=== PATIENT | male | born 1955 | race Caucasian/White ===

== ENCOUNTER → 2016-11-28 | Day surgery (SDC) | payer BC ==
[~2016-11-28] MED LIST: ALTACE PO; ASPIRINEC PO; BUPROPION XL300 MG PO; COREG PO; IBUPROFEN800 MG PO; LORTAB 7.5-5001 TAB PO; OMEPRAZOLE20 M2 PO; OMEPRAZOLE40 M1 PO; PHENERGAN PO; PREVACID PO; WELLBUTRIN SR PO; ZOLOFT PO
--- NOTE | ~2016-11-28 | OR ---
Unit #: [id number] #: [id number] Patient: SELENA NAVA [id number] [address] [address] [id number] MR#: [id number] NAME: SELENA NAVA. ROOM: Date of Procedure: 11/28/2016 Admission Date: 11/28/2016 Surgeon: Miles Owens M.D. : 1955 Attending Physician: Miles Owens M.D. Primary Care Physician: Paige Ruvalcaba A.P.R.N. OPERATIVE REPORT PROCEDURE PERFORMED Colonoscopy with snare polypectomy. INDICATIONS FOR PROCEDURE This is a 61-year-old female with history of colon polyps in the past. MEDICATIONS Monitored anesthesia. POSTOPERATIVE FINDINGS 1. Polyps x2, 6 mm, ascending colon, snared and sent for histopathology. 2. Polyp x3, sigmoid colon, 5 mm, snared and sent for histopathology. 3. Prep was good. 4. Small hemorrhoids. PLAN Repeat colonoscopy in 5 years. DESCRIPTION OF PROCEDURE The patient was explained of the procedure risks and benefits along with risk and benefits of anesthesia. She was brought to the endoscopy room. Propofol anesthesia was given. Rectal exam was done, which was normal. Colonoscope was lubricated, passed up the rectum, advanced under direct vision all the way to the cecum. Cecum was identified by the ileocecal valve and the appendiceal orifice. Multiple polyps were seen. They were snared and sent for histopathology as described. Colonic mucosa was otherwise normal. I retroflexed in the rectum, small hemorrhoids were seen. Scope was gently pulled out. She tolerated it well. No major complications. Dictated by... Terri Serrato/yovany TD: 11/29/2016 11:19 JOB #: [id number] CC: Terri Serrato M.D. Unit #: [id number] #: [id number] Patient: SELENA NAVA OPERATIVE REPORT Page 1 of 1 X Miles Owens MD PROCEDURE OPERATIVE NOTE
== END | disposition home or self-care (01) ==
LOC: COPS 08:10
DX: D12.2 Benign neoplasm of ascending colon (principal); D12.5 Benign neoplasm of sigmoid colon; K64.9 Unspecified hemorrhoids; Z86.010 Personal history of colon polyps; K21.9 Gastro-esophageal reflux disease without esophagitis; I10 Essential (primary) hypertension; Z95.0 Presence of cardiac pacemaker; Z88.5 Allergy status to narcotic agent; Z87.891 Personal history of nicotine dependence
CPT/HCPCS: 88305